=== PATIENT | male | born 1945 | race Caucasian/White ===

== ENCOUNTER → 2019-05-18 | Day surgery (SDC) | payer MEDICARE, OTHER ==
--- NOTE | 2019-05-14 16:35 | NUR ---
Checked patient temperature 98.2F via skin probe. Patient denied being out of the country in 14 days. Patient denied being around anyone that has been out of the country in the last 14 days. Patient denies fever, cough or shortness of breath in the last 14 days.
[2019-05-14 16:42] LABS: BASOPHILS # (AUTO) 0.1 (0.0-0.1); BASOPHILS % 0.6 % (0.0-1.0); EOSINOPHILS # (AUTO) 0.2 (0.0-0.4); EOSINOPHILS % 2.8 % (0.0-6.0); HEMATOCRIT 45.2 % (38.2-49.6); HEMOGLOBIN 15.2 g/dL (14.0-18.0); LYMPHOCYTES # (AUTO) 2.4 (1.0-3.2); LYMPHOCYTES % 30.3 % (18.0-39.1); MEAN CORPUSCULAR HEMOGLOBIN 28.1 pg (28-32); MEAN CORPUSCULAR HGB CONC 33.6 g/dL (31-35); MEAN CORPUSCULAR VOLUME 83.5 fL (81-99); MONOCYTES # (AUTO) 0.8 (0.2-0.8); MONOCYTES % 10.3 % (4.4-11.3); NEUTROPHILS # (AUTO) 4.4 (2.1-6.9); NEUTROPHILS % 55.6 % (38.7-80.0); PLATELET COUNT 325 x10e3/uL (140-360); RED BLOOD COUNT 5.41 x10e6/uL (4.3-5.7); RED CELL DISTRIBUTION WIDTH 14.6 % (11.7-14.4)
[2019-05-14 17:03] LABS: ALANINE AMINOTRANSFERASE 25 IU/L (0-55); ALBUMIN/GLOBULIN RATIO 1.3 (0.8-2.0); ALKALINE PHOSPHATASE 87 IU/L (40-150); ANION GAP 12.8 mmol/L (8-16); BLOOD UREA NITROGEN 14 mg/dL (7-26); BUN/CREATININE RATIO 13 (6-25); CALCIUM 9.4 mg/dL (8.4-10.2); CARBON DIOXIDE 27 mmol/L (22-29); CHLORIDE 101 mmol/L (98-107); CREATININE, SERUM 1.07 mg/dL (0.72-1.25); EST GLOMERULAR FILTRATION RATE > 60 ML/MIN (60-); GLUCOSE 152 mg/dL (74-118); POTASSIUM 3.8 mmol/L (3.5-5.1); SODIUM 137 mmol/L (136-145)
[2019-05-18] VITALS (8 sets, daily range): BP systolic 116–157; BP diastolic 62–87
[~2019-05-18] VITALS: Ht 172.7 cm; Wt 102.1 kg
[~2019-05-18] MED LIST: ALPRAZOLAM 0.5 MG TAB ONE; AMLODIPINE BESYL5 MG PO; ASPIRIN EC81 MG PO; ATORVASTATIN CA20 MG PO; BYDUREON2 MG IM; CELEBREX200 MG; CLOPIDOGREL75 MG PO; CYMBALTA30 MG; DIPHENHYDRAMINE HCL 25 MG CAP ONE; FENTANYL CITRATE/PF 100MCG/2 ML INJ ONE; GLIMEPIRIDE4 MG PO; GLIPIZIDE XL10 MG PO; HEPARIN SOD (PORCINE) 1000 UNIT/ML 30ML ONE; HEPARIN SOD/SOD CHLORIDE 1,000 ML ONE; HEPARIN SOD/SOD CHLORIDE 2,000 ML ONE; HYDROCHLOROTHIA25 MG; IOPAMIDOL 370 MG/ML 200 ML INFUS..BTL INJ ONE; JANUVIA100 MG PO; LANTUS100 UNIT/1 SC; LIDOCAINE HCL 2% LOCAL 20 ML VIAL ONE; LISINOPRIL-HCT1 EACH PO; LOSARTAN POTAS100 MG PO; METOPROLOL SUCC25 MG PO; MIDAZOLAM HCL 2 MG/2 ML VIAL ONE; MYRBETRIQ50 MG PO; NITROGLYCERIN/D5W 200 MCG/ML 250 ML ONE; OMEGA 3 FISH O1 EACH; PANTOPRAZOLE SO40 MG PO; PRAVASTATIN SOD40 MG PO; RISPERIDONE0.5 MG PO; SERTRALINE HCL100 MG PO; SIMCOR 500-401 EACH PO; SODIUM CHLORIDE 0.9% 1000ML 1,000 ML ONE; SOLIQUA 100 UNIT3 ML; TAMSULOSIN HCL0.4 MG PO; TOPROL XL25 MG PO; VERAPAMIL HCL 2.5 MG/ML 2 ML VIAL ONE; VITAMIN D-32000 UNIT PO; VITAMIN E400 UNI4 PO; XIGDUO XR 10 M1 EAC1
--- NOTE | 2019-05-18 08:58 | NUR ---
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 Bedside report received from LISSETTE Belle. Identifierx2. Alert oriented and appropriate, PERRLA, respirations even and unlabored to room air. Pulses x4 extremities equal and strong. Pedal pulses PT/DP X4 .Cap fill brisk < 3 sec. Rt TR band site stable ok to decrease at 930am. Normal neurovascular function. Skin warm and dry integrity appears D/I. IV 20g to left had, presents healthy w/o s/s of infiltration or complaint. Abdomen soft and supple. pt offered toileting, denies need to urinate or defecate. No personal affects with patient. Family in car. Pt and family verbalizes understanding of POC. Currently w/o complaint of pain or need. ds/rn
--- NOTE | 2019-05-18 09:30 | NUR ---
0930a RADIAL COMPRESSION REMOVAL NOTE: Initial Cuff volume -13 cc 0930 a -3cc Removed No hematoma/bleeding noted with normal neurovascular function. 0945a -5cc Removed No hematoma/ bleeding noted with normal neurovascular function. 1000 a -5cc Removed No hematoma/bleeding noted with normal neurovascular function. Air removal completed. Stasis achieved sterile 2x2,Tegaderm, Coban dressing No hematoma, bleeding noted with normal neurovascular function. Wrist splint in place. Pt instructed on POC. Ds/Rn
--- NOTE | 2019-05-18 09:45 | Operative Report ---
DATE OF PROCEDURE: 05/18/2019 SURGEON: Quentin Whalen MD INDICATIONS: Coronary artery disease, angina with abnormal stress test. PROCEDURES PERFORMED: 1. Left heart catheterization, selective coronary angiography. 2. Selective cannulation of one venous bypass conduit. 3. 35 minutes of conscious sedation monitoring and administration. DESCRIPTION OF PROCEDURE: Access obtained in the right radial artery. A 6-Hungarian sheath was placed. Coronary angiography demonstrated patent left main, multiple stents in the left anterior descending artery was widely patent, circumflex stent was widely patent. Right coronary artery is occluded. Left internal mammary artery is occluded. Saphenous vein bypass to diagonal branch was widely patent. No intervention deemed necessary. Right wrist TR band was applied. Minimal blood loss. No complications. The patient discharged home same day. MD EDE ChaidezB/MODL /[id number]
--- NOTE | 2019-05-18 10:30 | NUR ---
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 Rt Arm assessed for s/s of complication and presence of hematoma. Skin warm, dry, no discolor, and pulses present. IV removed from left hand. Distal tip appears intact. VS WNL. Pt denies pain, sob, or need at this time. Family at bedside. Review of discharge paperwork and follow up instructions. verbalized understanding. Pt to wheelchair and transported to front of hospital. Transferred to private vehicle under own strength w/o incident with DC paperwork in hand. - evelia
== END | disposition home or self-care (01) ==
LOC: CATH LAB 06:25
PROVIDERS: ATTEND Internal Medicine Interventional Cardiology
DX: I25.708 Atherosclerosis of coronary artery bypass graft(s), unspecified, with other forms of angina pectoris (principal); R94.39 Abnormal result of other cardiovascular function study; E78.5 Hyperlipidemia, unspecified; I10 Essential (primary) hypertension; E78.00 Pure hypercholesterolemia, unspecified; E11.9 Type 2 diabetes mellitus without complications; Z01.812 Encounter for preprocedural laboratory examination; Z79.02 Long term (current) use of antithrombotics/antiplatelets; Z79.82 Long term (current) use of aspirin; Z79.4 Long term (current) use of insulin; Z68.34 Body mass index [BMI] 34.0-34.9, adult; Z95.1 Presence of aortocoronary bypass graft; Z95.5 Presence of coronary angioplasty implant and graft; Z82.49 Family history of ischemic heart disease and other diseases of the circulatory system
CPT/HCPCS: 36415; 80053; 85025; 93455; C1887; J1644; J2001; J2250; J3010; J7030; Q9967; 93454; 99152; 99153

== ENCOUNTER → 2020-11-27 | Day surgery (SDC) | payer MEDICARE, OTHER ==
[2020-11-22 10:24] LABS: BASOPHILS # (AUTO) 0.1 (0.0-0.1); BASOPHILS % 0.8 % (0.0-1.0); EOSINOPHILS # (AUTO) 0.1 (0.0-0.4); EOSINOPHILS % 0.8 % (0.0-6.0); HEMATOCRIT 38.3 % (38.2-49.6); HEMOGLOBIN 11.8 g/dL (14.0-18.0); LYMPHOCYTES # (AUTO) 1.9 (1.0-3.2); LYMPHOCYTES % 30.2 % (18.0-39.1); MEAN CORPUSCULAR HEMOGLOBIN 24.6 pg (28-32); MEAN CORPUSCULAR HGB CONC 30.8 g/dL (31-35); MONOCYTES # (AUTO) 0.6 (0.2-0.8); MONOCYTES % 10.2 % (4.4-11.3); NEUTROPHILS # (AUTO) 3.6 (2.1-6.9); NEUTROPHILS % 57.4 % (38.7-80.0); PLATELET COUNT 303 x10e3/uL (140-360); RED BLOOD COUNT 4.79 x10e6/uL (4.3-5.7); RED CELL DISTRIBUTION WIDTH 13.7 % (11.7-14.4)
[2020-11-22 11:00] LABS: ALBUMIN 4.3 g/dL (3.5-5.0); ALBUMIN/GLOBULIN RATIO 1.5 (0.8-2.0); ANION GAP 17.7 mmol/L (8-16); CALCIUM 9.1 mg/dL (8.4-10.2); CREATININE, SERUM 1.24 mg/dL (0.72-1.25); POTASSIUM 3.7 mmol/L (3.5-5.1)
[~2020-11-27] VITALS: Ht 172.7 cm; Wt 100.7 kg
[2020-11-27] VITALS (8 sets, daily range): BP systolic 120–154; BP diastolic 59–83
[~2020-11-27] MED LIST changes: +FLOMAX0.4 MG PO; +GLUCOSAMINE1000 MG PO; -HEPARIN SOD/SOD CHLORIDE 1,000 ML ONE; +LOSARTAN-HCTZ1 EAC1 PO; +NITROGLYCERIN/D5W 200 MCG/ML 0 ML ONE; -NITROGLYCERIN/D5W 200 MCG/ML 250 ML ONE; +VITAMIN D3 PO
== END | disposition home or self-care (01) ==
LOC: CATH LAB 06:49
PROVIDERS: ATTEND Internal Medicine Interventional Cardiology
DX: I25.810 Atherosclerosis of coronary artery bypass graft(s) without angina pectoris (principal); I25.119 Atherosclerotic heart disease of native coronary artery with unspecified angina pectoris; E11.9 Type 2 diabetes mellitus without complications; E78.5 Hyperlipidemia, unspecified; E66.9 Obesity, unspecified; I10 Essential (primary) hypertension; I25.2 Old myocardial infarction; Z68.33 Body mass index [BMI] 33.0-33.9, adult; Z01.812 Encounter for preprocedural laboratory examination; Z20.822 Contact with and (suspected) exposure to COVID-19; Z95.1 Presence of aortocoronary bypass graft; Z79.4 Long term (current) use of insulin
CPT/HCPCS: 36415 ×2; 76937; 80053; 82948; 85025; 93459; C1760; C1769; J2001; J2250; J3010; J7030; Q9967; U0002; 93455; 99152; J1644

== ENCOUNTER 2021-06-10 11:19 | Inpatient (IN) | payer MEDICARE, OTHER ==
[~2021-06-10] VITALS: Ht 167.6 cm; Wt 100.7 kg
[~2021-06-10 11:19] MED LIST changes: -ALPRAZOLAM 0.5 MG TAB ONE; -DIPHENHYDRAMINE HCL 25 MG CAP ONE; -FENTANYL CITRATE/PF 100MCG/2 ML INJ ONE; -HEPARIN SOD (PORCINE) 1000 UNIT/ML 30ML ONE; -HEPARIN SOD/SOD CHLORIDE 2,000 ML ONE; -IOPAMIDOL 370 MG/ML 200 ML INFUS..BTL INJ ONE; -LIDOCAINE HCL 2% LOCAL 20 ML VIAL ONE; -MIDAZOLAM HCL 2 MG/2 ML VIAL ONE; -NITROGLYCERIN/D5W 200 MCG/ML 0 ML ONE; -SODIUM CHLORIDE 0.9% 1000ML 1,000 ML ONE; -VERAPAMIL HCL 2.5 MG/ML 2 ML VIAL ONE
[2021-06-10] MEDS ORDERED: SODIUM CHLORIDE 0.9% 1000ML 1,000 ML IV STA ×2 (11:35→13:36)
[2021-06-10] MEDS ORDERED: ONDANSETRON HCL INJ 2MG/ML 2ML 2 MG/ML VIAL IV STA (11:35)
[2021-06-10] MEDS ORDERED: Morphine 4mg Syringe 4 MG/ML INJ IV ONE (11:45)
[2021-06-10 11:55] LABS: BASOPHILS % 0.2 % (0.0-1.0); HEMATOCRIT 35.3 % (38.2-49.6); HEMOGLOBIN 11.2 g/dL (14.0-18.0); LYMPHOCYTES # (AUTO) 0.6 (1.0-3.2); LYMPHOCYTES % 4.3 % (18.0-39.1); MEAN CORPUSCULAR HGB CONC 31.7 g/dL (31-35); MEAN CORPUSCULAR VOLUME 82.1 fL (81-99); MONOCYTES # (AUTO) 0.4 (0.2-0.8); MONOCYTES % 2.7 % (4.4-11.3); NEUTROPHILS # (AUTO) 11.9 (2.1-6.9); NEUTROPHILS % 92.5 % (38.7-80.0); PLATELET COUNT 319 x10e3/uL (140-360); RED CELL DISTRIBUTION WIDTH 14.6 % (11.7-14.4)
[2021-06-10 12:02] LABS: CLARITY,URINE CLEAR (CLEAR); COLOR,URINE YELLOW (YELLOW)
[2021-06-10 12:03] LABS: KETONES,URINE 2+ (NEGATIVE); LEUKOCYTE ESTERASE ,URINE NEGATIVE (NEGATIVE); NITRITE,URINE NEGATIVE (NEGATIVE); PROTEIN,URINE DIPSTICK 2+ (NEGATIVE)
[2021-06-10 12:04] LABS: URINE UROBILINOGEN 0.2 mg/dL (0.2 - 1)
[2021-06-10 12:05] LABS: INR 0.95; PARTIAL THROMBOPLASTIN TIME 28.9 seconds (23.8-35.5); PROTHROMBIN TIME 13.6 seconds (11.9-14.5)
[2021-06-10 12:07] LABS: WBC,URINE (MAN) 0-5 /HPF (0-5)
[2021-06-10 12:08] LABS: BACTERIA,URINE RARE /HPF
[2021-06-10 12:15] LABS: ALBUMIN 4.1 g/dL (3.5-5.0); ALBUMIN/GLOBULIN RATIO 1.4 (0.8-2.0); ANION GAP 15.7 mmol/L (8-16); CALCIUM 9.2 mg/dL (8.4-10.2); CREATININE, SERUM 1.11 mg/dL (0.72-1.25); POTASSIUM 4.7 mmol/L (3.5-5.1)
[2021-06-10 12:21] LABS: CREATINE KINASE MB 2.8 ng/mL (0-5.0)
[2021-06-10] MEDS ORDERED: IOPAMIDOL 370 MG/ML 100 ML INFUS..BTL INJ ONE (12:42)
[2021-06-10] MEDS ORDERED: METRONIDAZOLE 500MG/NS 100ML 100 ML IV STA (13:16)
[2021-06-10] MEDS ORDERED: ONDANSETRON HCL INJ 2MG/ML 2ML 2 MG/ML VIAL IV PRN (13:45)
[2021-06-10] MEDS ORDERED: Morphine 2mg Syringe 2 MG/ML SYR IV PRN (13:45)
[2021-06-10 14:42] VITALS: BP 134/63
[2021-06-10 14:44] VITALS: BP 134/63
[2021-06-10 15:02] LABS: LYMPHOCYTES % (MANUAL) 15 % (19-48); MONOCYTES % (MANUAL) 2 % (3.4-9.0); NEUTROPHILS % (MANUAL) 83 % (40-74); PLATELET ESTIMATE ADEQUATE; PLATELET MORPHOLOGY COMMENT NORMAL; RBC MORPHOLOGY COMMENT NORMAL
[2021-06-10] MEDS ORDERED: ACETAMINOPHEN 325 MG TAB PO PRN (17:00)
[2021-06-10] MEDS ORDERED: DEXTROSE 50% SYRINGE 50 ML IV PRN (17:00)
[2021-06-10] MEDS ORDERED: ENOXAPARIN SOD INJ 40 MG/0.4 ML SYR SC SCH (17:00)
[2021-06-10] MEDS ORDERED: HYDRALAZINE HCL 20 MG/ML VIAL IV PRN (17:00)
[2021-06-10] MEDS: INSULIN LISPRO 100 UNIT/1 ML 3ML VIAL SQ SCH ×2 (17:35→21:49)
[2021-06-10] MEDS ORDERED: SODIUM CHLORIDE 0.9% 1000ML 1,000 ML ONE (17:44)
[2021-06-10] MEDS ORDERED: METRONIDAZOLE 500MG/NS 100ML 100 ML IV SCH (18:00)
[2021-06-10 20:00] VITALS: BP 111/57
[2021-06-10 20:21] VITALS: BP 111/57
[2021-06-10] MEDS: TAMSULOSIN HCL 0.4 MG CAP PO SCH (20:42)
[2021-06-10] MEDS: METOPROLOL SUCCINATE 25 MG TAB XL PO SCH (20:42)
[2021-06-10] MEDS: ATORVASTATIN 20 MG TAB PO SCH (20:42)
[2021-06-10] MEDS: INSULIN GLARGINE 100 UNITS/ML VIAL SQ SCH (21:50)
[2021-06-10 22:29] LABS: % IRON SATURATION 8 % (15-50); IRON 42 ug/dL (65-175); TOTAL IRON BINDING CAPACITY 557 ug/dL (261-478); TRANSFERRIN 398 mg/dL (174-364)
[2021-06-10] MEDS: METRONIDAZOLE 250MG/NS 50ML 50 ML IV SCH (22:50)
[2021-06-10] MEDS ORDERED: CYANOCOBALAMIN INJ 1,000 MCG/ML VIAL IM ONE (23:15)
[2021-06-11] VITALS (8 sets, daily range): BP systolic 95–151; BP diastolic 49–68
[2021-06-11] MEDS: METRONIDAZOLE 250MG/NS 50ML 50 ML IV SCH ×3 (04:48→18:27)
[2021-06-11 06:15] LABS: BASOPHILS # (AUTO) 0.1 (0.0-0.1); BASOPHILS % 0.6 % (0.0-1.0); EOSINOPHILS # (AUTO) 0.1 (0.0-0.4); HEMOGLOBIN 9.6 g/dL (14.0-18.0); LYMPHOCYTES # (AUTO) 1.8 (1.0-3.2); LYMPHOCYTES % 23.2 % (18.0-39.1); MEAN CORPUSCULAR HEMOGLOBIN 25.7 pg (28-32); MEAN CORPUSCULAR VOLUME 83.1 fL (81-99); MONOCYTES % 13.2 % (4.4-11.3); NEUTROPHILS # (AUTO) 4.9 (2.1-6.9); NEUTROPHILS % 61.6 % (38.7-80.0); PLATELET COUNT 248 x10e3/uL (140-360); RED BLOOD COUNT 3.73 x10e6/uL (4.3-5.7); RED CELL DISTRIBUTION WIDTH 14.8 % (11.7-14.4)
[2021-06-11 06:38] LABS: ANION GAP 11.8 mmol/L (8-16); CALCIUM 8.1 mg/dL (8.4-10.2); CREATININE, SERUM 1.01 mg/dL (0.72-1.25); POTASSIUM 3.8 mmol/L (3.5-5.1)
[2021-06-11] MEDS: INSULIN LISPRO 100 UNIT/1 ML 3ML VIAL SQ SCH ×7 (07:30→21:00)
[2021-06-11] MEDS: CYANOCOBALAMIN INJ 1,000 MCG/ML VIAL IM SCH (09:24)
[2021-06-11] MEDS: DULOXETINE HCL 30 MG DELAYED RELEASE PO SCH (09:24)
[2021-06-11] MEDS: IRON SUCROSE 100 MG in SODIUM CHLORIDE 0.9% 100 ML 100 ML IV SCH (09:25)
[2021-06-11] MEDS: INSULIN GLARGINE 100 UNITS/ML VIAL SQ SCH (21:00)
[2021-06-11] MEDS: TAMSULOSIN HCL 0.4 MG CAP PO SCH (21:30)
[2021-06-11] MEDS: METOPROLOL SUCCINATE 25 MG TAB XL PO SCH (21:30)
[2021-06-11] MEDS: ATORVASTATIN 20 MG TAB PO SCH (21:30)
[2021-06-12] VITALS: BP 121/50
[2021-06-12] MEDS: METRONIDAZOLE 250MG/NS 50ML 50 ML IV SCH ×2 (00:02→05:53)
[2021-06-12 04:00] VITALS: BP 139/83
[2021-06-12 05:19] LABS: BASOPHILS # (AUTO) 0.1 (0.0-0.1); BASOPHILS % 0.9 % (0.0-1.0); EOSINOPHILS # (AUTO) 0.2 (0.0-0.4); EOSINOPHILS % 2.6 % (0.0-6.0); HEMATOCRIT 32.2 % (38.2-49.6); HEMOGLOBIN 10.1 g/dL (14.0-18.0); LYMPHOCYTES # (AUTO) 1.8 (1.0-3.2); LYMPHOCYTES % 31.1 % (18.0-39.1); MEAN CORPUSCULAR HEMOGLOBIN 26.1 pg (28-32); MEAN CORPUSCULAR HGB CONC 31.4 g/dL (31-35); MEAN CORPUSCULAR VOLUME 83.2 fL (81-99); MONOCYTES # (AUTO) 0.7 (0.2-0.8); MONOCYTES % 12.3 % (4.4-11.3); NEUTROPHILS # (AUTO) 3.1 (2.1-6.9); NEUTROPHILS % 52.9 % (38.7-80.0); PLATELET COUNT 153 x10e3/uL (140-360); RED BLOOD COUNT 3.87 x10e6/uL (4.3-5.7); RED CELL DISTRIBUTION WIDTH 14.7 % (11.7-14.4)
[2021-06-12 05:46] LABS: CALCIUM 8.2 mg/dL (8.4-10.2); CREATININE, SERUM 0.86 mg/dL (0.72-1.25)
[2021-06-12] MEDS: CYANOCOBALAMIN INJ 1,000 MCG/ML VIAL IM SCH (08:18)
[2021-06-12] MEDS: DULOXETINE HCL 30 MG DELAYED RELEASE PO SCH (08:18)
[2021-06-12] MEDS: INSULIN LISPRO 100 UNIT/1 ML 3ML VIAL SQ SCH ×2 (08:20→08:21)
[2021-06-12 08:48] VITALS: BP 139/83
[2021-06-12] MEDS: IRON SUCROSE 100 MG in SODIUM CHLORIDE 0.9% 100 ML 100 ML IV SCH (09:03)
== END 2021-06-12 12:03 | disposition home or self-care (01) | DRG 872 ==
LOC: ER 11:25 → ERHOLD 13:32 → MED/SURG2 14:33
PROVIDERS: ADMIT Internal Medicine; ATTEND Internal Medicine
PROC: XW03396 Introduction of Ceftolozane/Tazobactam Anti-infective into Peripheral Vein, Percutaneous Approach, New Technology Group 6 (ICD-10-PCS; principal; 2021-06-10)
DX: A41.9 Sepsis, unspecified organism (principal); K57.32 Diverticulitis of large intestine without perforation or abscess without bleeding; N39.0 Urinary tract infection, site not specified; N41.9 Inflammatory disease of prostate, unspecified; D50.8 Other iron deficiency anemias; E11.9 Type 2 diabetes mellitus without complications; I25.10 Atherosclerotic heart disease of native coronary artery without angina pectoris; Z95.1 Presence of aortocoronary bypass graft; E53.8 Deficiency of other specified B group vitamins; Z20.822 Contact with and (suspected) exposure to COVID-19; E66.9 Obesity, unspecified; Z68.35 Body mass index [BMI] 35.0-35.9, adult; B96.5 Pseudomonas (aeruginosa) (mallei) (pseudomallei) as the cause of diseases classified elsewhere
CPT/HCPCS: 36415; 71045; 74177; 80048; 80053; 81001; 82270; 82550; 82553; 82607; 82746; 82948; 83540; 83605; 83880; 84466; 84484; 85025; 85045; 85610; 85730; 87040; 87086; 87186; 93005; 94799; 96372; 99284; J0696; J1650; J1756; J2270; J2405; J2543; J3420; J7030; Q9967; U0002

== ENCOUNTER → 2021-07-23 | Day surgery (SDC) | payer MEDICARE, OTHER ==
[~2021-07-23] MED LIST changes: +LIDOCAINE HCL 2% LOCAL INJ 5 ML SDV VIAL INJ ONE; +PROPOFOL IV EMULSION 10 MG/ML 20 ML VIAL ONE; +VITAMIN C1000 MG PO; +VITAMIN D3 COM1 EACH PO
[2021-07-23 08:14] LABS: BASOPHILS # (AUTO) 0.1 (0.0-0.1); BASOPHILS % 0.7 % (0.0-1.0); EOSINOPHILS # (AUTO) 0.1 (0.0-0.4); HEMATOCRIT 37.3 % (38.2-49.6); HEMOGLOBIN 11.3 g/dL (14.0-18.0); LYMPHOCYTES # (AUTO) 1.1 (1.0-3.2); LYMPHOCYTES % 16.7 % (18.0-39.1); MEAN CORPUSCULAR HEMOGLOBIN 26.1 pg (28-32); MEAN CORPUSCULAR HGB CONC 30.3 g/dL (31-35); MEAN CORPUSCULAR VOLUME 86.1 fL (81-99); MONOCYTES # (AUTO) 0.8 (0.2-0.8); MONOCYTES % 11.9 % (4.4-11.3); NEUTROPHILS # (AUTO) 4.6 (2.1-6.9); NEUTROPHILS % 69.4 % (38.7-80.0); PLATELET COUNT 274 x10e3/uL (140-360); RED BLOOD COUNT 4.33 x10e6/uL (4.3-5.7); RED CELL DISTRIBUTION WIDTH 14.6 % (11.7-14.4)
[2021-07-23 11:15] VITALS: BP 114/68
== END | disposition home or self-care (01) ==
LOC: OR 07:01
PROVIDERS: ATTEND Internal Medicine Gastroenterology
DX: Z12.11 Encounter for screening for malignant neoplasm of colon (principal); D12.3 Benign neoplasm of transverse colon; D12.4 Benign neoplasm of descending colon; K57.30 Diverticulosis of large intestine without perforation or abscess without bleeding; K64.8 Other hemorrhoids; K59.00 Constipation, unspecified; Z87.19 Personal history of other diseases of the digestive system; Z71.3 Dietary counseling and surveillance; D64.9 Anemia, unspecified; E11.9 Type 2 diabetes mellitus without complications; E66.9 Obesity, unspecified; I25.10 Atherosclerotic heart disease of native coronary artery without angina pectoris; I45.10 Unspecified right bundle-branch block; I44.0 Atrioventricular block, first degree; E78.5 Hyperlipidemia, unspecified; Z20.822 Contact with and (suspected) exposure to COVID-19; Z79.02 Long term (current) use of antithrombotics/antiplatelets; Z79.4 Long term (current) use of insulin; Z79.899 Other long term (current) drug therapy; Z68.34 Body mass index [BMI] 34.0-34.9, adult; Z95.5 Presence of coronary angioplasty implant and graft; Z87.440 Personal history of urinary (tract) infections; Z87.891 Personal history of nicotine dependence
CPT/HCPCS: 36415; 45384; 82948; 85025; 88305; 93005; J2001; J2704; U0002; 45378